=== PATIENT | female | born 2000 | race Caucasian/White ===

== ENCOUNTER 2019-09-04 07:20 | Emergency (ER) | payer OTHER ==
[~2019-09-04] VITALS: Ht 157.4 cm; Wt 54.5 kg
--- OUTSIDE RECORDS SUMMARY | 2019-09-04 07:25 | XMS REPORT | Continuity of Care Document ---
Author Organization Unknown Address Unknown Phone Unavailable Allergies There is no data. Medications There is no data. Problems There is no data. Procedures There is no data. Results There is no data. Encounters ACCT No. Visit Date/Time Discharge Status Pt. Type Provider Facility Loc./Unit Complaint [id number] 09/04/2019 07:21:[address] Emergency JOSE HANNA, CHANTELLE Walker [facility] ER FS PSYCH EVAL
[2019-09-04 07:45] LABS: HCG,QUALITATIVE URINE NEGATIVE (NEGATIVE)
[2019-09-04 07:45] LABS: WHITE BLOOD COUNT 9.7 10^3/uL (4.3-11.0)
[2019-09-04 07:46] LABS: HEMOGLOBIN 12.2 G/DL (11.5-16.0); RED CELL DISTRIBUTION WIDTH 14.5 % (10.0-14.5)
[2019-09-04 08:03] LABS: CHLORIDE 105 MMOL/L (98-107); POTASSIUM 3.8 MMOL/L (3.6-5.0); SODIUM 141 MMOL/L (135-145)
[2019-09-04 08:03] LABS: AMPHETAMINE SCREEN, URINE POSITIVE (NEGATIVE); BARBITURATE SCREEN URINE NEGATIVE (NEGATIVE); BENZODIAZEPINES SCREEN URINE NEGATIVE (NEGATIVE); CANNABINOID SCREEN, URINE POSITIVE (NEGATIVE); COCAINE SCREEN URINE NEGATIVE (NEGATIVE); METHADONE STAT NEGATIVE (NEGATIVE); METHAMPHETAMINE SCREEN URINE S POSITIVE (NEGATIVE); OPIATE SCREEN URINE NEGATIVE (NEGATIVE); OXYCODONE STAT NEGATIVE (NEGATIVE); PROPOXYPHENE STAT NEGATIVE (NEGATIVE); TRICYCLIC ANTIDEPRESSANTS SCRE NEGATIVE (NEGATIVE)
[2019-09-04 08:04] LABS: ACETAMINOPHEN < 10 UG/ML (10-30); ALANINE AMINOTRANSFERASE 12 U/L (0-55); ALBUMIN 4.5 GM/DL (3.2-4.5); ALKALINE PHOSPHATASE 110 U/L (40-136); BILIRUBIN,TOTAL 0.3 MG/DL (0.1-1.0); BUN/CREATININE RATIO 21; CALCIUM 9.1 MG/DL (8.5-10.1); CARBON DIOXIDE 23 MMOL/L (21-32); CREATININE SERUM 0.67 MG/DL (0.60-1.30); GFR ESTIMATED > 60; GLUCOSE 106 MG/DL (70-105); SALICYLATE < 5.0 MG/DL (5.0-20.0); TOTAL PROTEIN 7.6 GM/DL (6.4-8.2)
--- NOTE | 2019-09-04 08:07 | NUR ---
[facility] [place] at this time for mental health evaluation.
[2019-09-04] MEDS ORDERED: ZIPRASIDONE INJECTION 20 MG in WATER (STERILE) FOR INJECTION 1.2 ML IM SCH (08:15)
[2019-09-04] MEDS ORDERED: ZIPRASIDONE 20 MG INJ (GEODON) VIAL IM ONE (08:19)
--- NOTE | 2019-09-04 08:20 | NUR ---
Patient given 20mg of Geodon IM at this time due to increased agitation.
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
--- NOTE | 2019-09-04 13:38 | NUR ---
Received a call from Deshaun at [facility]. He informed this RN that we would need to wait at least 12 hours from the presentation to the ED for a screening. He also stated he would prefer 24 hours to make sure she is no longer under the influence of Methanphetamines.
[2019-09-04] MEDS ORDERED: hydrOXYzine (VISTARIL/ATARAX) 25 MG capsule/tablet PO ONE (16:15)
[2019-09-04] MEDS ORDERED: ZIPRASIDONE INJECTION 20 MG in WATER (STERILE) FOR INJECTION 1.2 ML IM STA ×2 (17:05→17:06)
--- NOTE | 2019-09-04 19:20 | NUR ---
sats are 98%
--- NOTE | 2019-09-04 22:00 | NUR ---
[facility] was notified of need for evaluation. information sent to [facility] as requested. this rn was informed it might be another hour to hour and a half before the pt. can be evaluated.tracking number is [id number]
--- NOTE | 2019-09-04 22:55 | NUR ---
sats 100% heart rate 98
--- NOTE | 2019-09-04 23:24 | NUR ---
[facility]
--- NOTE | 2019-09-05 | NUR ---
[facility] ATTEMPTED TO SCREEN THE PT BUT THE PT WAS TOO TIRED TO BE SCREENED. WILL ATTEMPT AT A LATER TIME.
--- NOTE | 2019-09-05 01:46 | NUR ---
PT. SLEEPING, AROUSES EASILY THEN GOES RIGHT BACK TO SLEEP.
--- NOTE | 2019-09-05 06:17 | NUR ---
PT. SIT UP AND THEN LAID BACK DOWN CLOSED HER EYES AND WHEN ASKED IF SHE WAS READY FOR THE EVAL, SHE DID NOT ANSWER. PT. WENT BACK TO SLEEP. [facility] STILL AT THE BEDSIDE.
--- NOTE | 2019-09-05 07:25 | NUR ---
[facility] hotline called at this time and they want us to wait until 8 when the local office opens.
--- NOTE | 2019-09-05 08:00 | NUR ---
[facility] CALLED AND WILL CALL BACK WITH A ZOOM NUMBER IN 10 MINS AND START A SCREENING.
[2019-09-05 10:04] VITALS: BP 124/68
[2019-09-05] MEDS ORDERED: TETANUS & DIPHTHERIA TOX,ADULT 0.5 ML (TENIVAC) IM ONE (10:15)
== END 2019-09-05 11:37 ==
LOC: ER FS 07:21
DX: F30.9 Manic episode, unspecified (principal); F15.10 Other stimulant abuse, uncomplicated; F17.210 Nicotine dependence, cigarettes, uncomplicated; Z86.59 Personal history of other mental and behavioral disorders
CPT/HCPCS: 36415; 80053; 80306; 84703; 85027; 99283; G0480 ×3; 80320; 80329; 96372

== ENCOUNTER 2019-10-04 14:52 | Emergency (ER) | payer SELFPAY ==
[~2019-10-04] VITALS: Ht 157.4 cm; Wt 68.5 kg
--- NOTE | 2019-10-04 15:00 | ED Psychosocial ---
General Stated Complaint: DEPRESSION History of Present Illness Date Seen by Provider: Oct 04, 2019 Time Seen by Provider: 15:00 Initial Comments 18-year-old female presents requesting a medication refill. Patient has a history of bipolar along with methamphetamine and marijuana use. Patient report reports that she was up here from [place]. That she's given head back to [place] when her grandmother picks up in 3 hours. Patient reports that she just to shelter couple days ago and is wanting to get her medication refilled that she feels funny off of them. She reports as Zyprexa and "depravil" patient has no other complaints or requests. Patient does not want any further evaluation. Allergies and Home Medications Allergies Coded Allergies: No Known Drug Allergies (Unverified , 09/04/19) Patient Home Medication List Home Medication List Reviewed: Yes Review of Systems Constitutional: no symptoms reported EENTM: no symptoms reported Respiratory: no symptoms reported Cardiovascular: no symptoms reported Gastrointestinal: no symptoms reported Genitourinary: no symptoms reported Musculoskeletal: no symptoms reported Psychiatric/Neurological: See HPI Past Qjdaqbj-Hthbpj-Jqalii Hx Past Med/Social Hx: Reviewed Nursing Past Med/Soc Hx Patient Social History Drug of Choice: Meth, Marijuana Type Used: Cigarettes 2nd Hand Smoke Exposure: No Recent Hopitalizations: No Immunizations Up To Date Tetanus Booster (TDap): Unknown Seasonal Allergies Seasonal Allergies: No Past Medical History Surgeries: No Respiratory: No Cardiac: No Neurological: No Genitourinary: No Gastrointestinal: No Musculoskeletal: No Endocrine: No HEENT: No Cancer: No Psychosocial: Yes (Substance abuse) Anxiety, Depression Integumentary: No Blood Disorders: No Physical Exam Capillary Refill : Height, Weight, BMI Height: '" Weight: lbs. oz. kg; 21.00 BMI Method: General Appearance: other (anxious but cooperative) Respiratory: chest non-tender, lungs clear Cardiovascular: tachycardia Gastrointestinal: non tender, soft Neurologic/Psychiatric: no motor/sensory deficits, alert Appearance/Memory: disheveled Behavior/Eye Contact: cooperative Skin: normal color, warm/dry Progress/Results/Core Measures Progress Progress Note : Time: 15:12 Progress Note I discussed with patient that I would be happy to give her a prescription for Zyprexa however I am not aware of her medication " depravil" and we are unable to find any brand name or generics that go under that name. That with our inability to find proper medication and dosage that I would be unable to fill that. Patient is stable and per her request we get the Zyprexa. Patient is discharged home in stable condition Departure Impression Primary Impression: Bipolar affective, mixed Disposition: 01 HOME, SELF-CARE Condition: Stable Departure-Patient Inst. Referrals: NO,LOCAL PHYSICIAN (PCP/Family) Primary Care Physician Patient Instructions: Bipolar Disorder (DC) Scripts Olanzapine (Zyprexa) 5 Mg Tablet 5 MG PO DAILY, #14 TAB Prov: DUSTIN STANLEY DO 10/04/19 DUSTIN STANLEY DO Oct 04, 2019 15:00
[2019-10-04] MEDS ORDERED: OLAN5TAB3 PO (15:18)
--- NOTE | 2019-10-04 15:30 | NUR ---
Discharged patient at this time and then was asked to call pt's Grandmother for her. Call to long distance [phone] and spoke with pt's Grandmother. Grandmother received call this a.m. at 0500 of pt being released from nursing home and she is seeking a ride. Pt was released at sometime of uncertainty and pt had made it over to the [facility] when patient reported "I do not feel well off my bipolar meds." "I want to be safe, feel safe." Upon speaking with Grandmother, the request was made by her "keep her safe, keep her there until I get there in about 2 1/[address] Pollard and this RN agree to let the patient rest in ED 6 with a TV and provided sanadwich, pudding, chips, and juice. Pt was very gracious and is cooperative. Pt began to laugh somewhat loudly as she watched TV and smiling was noted.
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
--- NOTE | 2019-10-04 17:40 | NUR ---
Patient was escorted to vehicle arriving at this time her Grandmother from [place]. Grandmother's phone [phone].
--- NOTE | 2019-10-04 17:45 | NUR ---
Grandmother embraced patient with long hug as she asks, "Ciara are you ready now to come home?" Pt began a deep sobbing cry and reports she wants to go home and loves her very much. Pt asked, "Oh but where is Nava??" Grandmother replied she has no clue where Nava is. Nava is believed to be her child. Pt then states, "Oh we have to call the environmental issues instructor to find out where they put her." Grandmother informs her they will work on that and also that she is being taken to a hospital on return to home to get her the help she is needing for her mental health.
== END 2019-10-04 15:30 ==
LOC: EDUNIT# 14:52 → ER FS 14:53
DX: F31.60 Bipolar disorder, current episode mixed, unspecified (principal)
CPT/HCPCS: 99281